=== PATIENT | female | born 1940 | race Two or more races ===

== ENCOUNTER 2016-11-10 07:13 | Day surgery (SDC) | payer MEDICARE, OTHER ==
--- NOTE | 2016-11-06 16:02 | Pre-Procedure Note/Attestation ---
Pre-Procedure Note/Attestation Complete Prior to Procedure Planned Procedure: bilateral Procedure Narrative: 1- Ptosis correction, upper lids 2- Entropion correction upper lids 3- Blepharoplasty, upper lids 4- conjunctivoplasty ,both eyes. 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 Attestation I attest that I discussed the nature of the procedure; its benefits; risks and complications; and alternatives (and the risks and benefits of such alternatives ), prior to the procedure, with the patient (or the patient's legal route sales representative). I attest that, if there was a reasonable possibility of needing a blood transfusion, the patient (or the patient's legal route sales representative) was given the [facility] standardized written summary, pursuant to the Jameel Burgo[place] Blood Safety Act ([place] [facility] and Safety Code # 1645, as amended). I attest that I re-evaluated the patient just prior to the surgery and that there has been no change in the patient's H&P, except as documented below: TEE POWELL Nov 06, 2016 16:02
[~2016-11-10] VITALS: Ht 162.6 cm; Wt 49.9 kg
[2016-11-10] VITALS (9 sets, daily range): BP systolic 125–147; BP diastolic 50–64
[~2016-11-10 07:13] MED LIST: Akten 3.5% 1ml Btl BOTH EYES ONE; Maxitrol Opth Oint 3.5gm BOTH EYES ONE
[2016-11-10] MEDS ORDERED: Akten 3.5% 1ml Btl ONE (07:54)
[2016-11-10] MEDS ORDERED: LR 1000ml 1,000 ML IV SCH (08:00)
[2016-11-10] MEDS ORDERED: ATORVASTATIN CA20 MG ORAL (08:26)
[2016-11-10] MEDS ORDERED: DEXILANT60 MG ORAL (08:26)
[2016-11-10] MEDS ORDERED: MELATONIN5 M6 PO (08:26)
[2016-11-10] MEDS ORDERED: ELIQUIS5 MG PO (08:26)
[2016-11-10] MEDS ORDERED: METOPROLOL TART25 MG ORAL (08:26)
[2016-11-10] MEDS ORDERED: ASPIR 8181 MG ORAL (08:26)
[2016-11-10] MEDS ORDERED: [UNRECOGNIZED DRUG - OTHER] PO (08:27)
[2016-11-10] MEDS ORDERED: VITAMIN D400 INTLU ORAL (08:27)
[2016-11-10] MEDS ORDERED: CALCIUM CITRAT250 M1 PO (08:27)
[2016-11-10] MEDS ORDERED: Sodium Hyaluronate 10 mg/ml 0.85ml ONE (08:29)
[2016-11-10] MEDS ORDERED: Tobradex Opth Oint 3.5gm ONE (09:24)
[2016-11-10] MEDS ORDERED: Tetracaine 0.5% Opth Soln ONE (09:25)
[2016-11-10] MEDS ORDERED: Lidocaine 2% MPF 5ml Vial INJ ONE (09:26)
[2016-11-10] MEDS ORDERED: Povidone-Iodine 5% opth solution ONE (09:26)
[2016-11-10] MEDS ORDERED: Midazolam 2mg/2ml Inj ONE (09:30)
[2016-11-10] MEDS ORDERED: LR 1000ml ONE (09:30)
[2016-11-10] MEDS ORDERED: NS Irrig 1000ml ONE (09:30)
[2016-11-10] MEDS ORDERED: fentaNYL 100 mcg/2 mL IV ONE (09:30)
[2016-11-10] MEDS ORDERED: Sterile Water Irrig 1000ml IRRIG ONE (09:30)
[2016-11-10] MEDS ORDERED: Propofol 10mg/ml 20ml IV ONE (09:30)
[2016-11-10] MEDS ORDERED: Bupivacaine 0.75% 30ml vial INJ ONE (09:40)
[2016-11-10] MEDS ORDERED: LR 1000ml 1,000 ML IVLG SCH (10:10)
--- NOTE | 2016-11-10 10:10 | Anethesia Preoperative Eval ---
Anesthesia Pre-op PMH/ROS General Date of Evaluation: Nov 10, 2016 Time of Evaluation: 09:24 Anesthesiologist: Zoey ASA Score: ASA 3 Mallampati Score Class I : Soft palate, uvula, fauces, pillars visible Class II: Soft palate, uvula, fauces visible Class III: Soft palate, base of uvula visible Class IV: Only hard plate visible Mallampati Classification: Class II Surgeon: Latasha Diagnosis: Bilateral ptosis Surgical Procedure: Bilateral blepharoplasty Anesthesia History: none Family History: no anesthesia problems Allergies: Coded Allergies: No Known Allergies (Verified Allergy, Mild, 11/04/10) Medications: see eMAR Past Medical History Cardiovascular: Reports: CAD - stable no recent CP, HTN, arrhythmia - SVT s/p ablasion, Denies: IN, other, valve dz Pulmonary: Denies: COPD, TODD, asthma, other Gastrointestinal/Genitourinary: Reports: GERD - mild, Denies: CRI, ESRD, other Neurologic/Psychiatric: Denies: CVA, TIA, dementia, depression/anxiety, other Endocrine: Denies: DM, hypothyroidism, other, steroids HEENT: Reports: cataract (L), cataract (R) - s/p Sx, Denies: FOND DU LAC (L), FOND DU LAC (R), glaucoma, other Hematology/Immune: Reports: bleeding disorder - anticoagulated, Denies: DVT, anemia, other Musculoskeletal/Integumentary: Reports: DJD, Denies: DDD, OA, RA, edema, other Other: other - malnourished PMH Narrative: as above PSxH Narrative: bilateral cataracts, Coronary angiogram with stent placement, ablation Anesthesia Pre-op Phys. Exam Physician Exam Last Vital Signs Date Time Temp Pulse Resp B/P Pulse Ox O2 Delivery O2 Flow Rate FiO2 11/10/16 08:17 98.3 62 20 141/63 96 Room Air Constitutional: NAD Neurologic: CN 2-12 intact Cardiovascular: RRR, no M/R/G Respiratory: CTA Gastrointestinal: S/NT/ND Airway Exam Mallampati Score: Class II MO: limited Neck: stiff ROM: limited Teeth: missing Dentures: no lower, no upper Anesthesia Pre-op A/P Labs see chart Studies Pre-op Studies: EKG - SR Risk Assessment & Plan Assessment: ASA 3 Plan: MAC Status Change Before Surgery: No Pre-Antibiotics Drug: none DMITRY OLMOS M.D. Nov 10, 2016 10:10
[2016-11-10] MEDS ORDERED: DiphenhydrAMINE 50mg/ml Inj IVP PRN (10:15)
[2016-11-10] MEDS ORDERED: fentaNYL 100 mcg/2 mL IV PRN (10:15)
--- NOTE | 2016-11-10 11:49 | Immediate Post-Op Evaluation ---
Immediate Post-Op Evalulation Immediate Post-Op Evalulation Procedure: Bilateral blepharoplasty Date of Evaluation: Nov 10, 2016 Time of Evaluation: 11:48 IV Fluids: 600 Blood Products: none Estimated Blood Loss: min Urinary Output: none Blood Pressure Systolic: 138 Blood Pressure Diastolic: 52 Pulse Rate: 74 Respiratory Rate: 20 O2 Sat by Pulse Oximetry: 98 Temperature (Fahrenheit): 97.8 Pain Score (1-10): 2 Nausea: No Vomiting: No Complications none Patient Status: awake, patent, none Hydration Status: adequate DMITRY OLMOS M.D. Nov 10, 2016 11:49
--- NOTE | 2016-11-10 11:56 | Brief Operative Note ---
Immediate Post Operative Note Operative Note Chief Complaint: Droopy eyelids, foreign body sensation, difficulty driving and reading. 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 Procedure: 1- Pterygium excision, bilaterally. 2- symblepharon excision, bilaterally. 3- Amniotic membrane graft bilaterally 4-conjunctivoplasty with amniotic graft, bilaterally. 5- Ptosis correction, upper lids ( bilaterally ). 6 Entropion correction, upper lids ( bilaterally). 7- upper blepharoplasty, bilaterally. Post-op Diagnosis: same as pre-op plus Surgeon: Tee Pagan MD. Stunner Animal: None Additional Surgeons: None Anesthesiologist: Dr. Greer Anesthesia: regional, local, MAC Specimen: none Complications: none Condition: stable Estimated Blood Loss: minimal Implant(s) used?: Yes - Omniotic membrane graft was done for pterygium and also for the conjunctivoplasty, bilaterally TEE PAGAN Nov 10, 2016 11:56
--- NOTE | 2016-11-10 12:07 | Discharge Summary ---
Discharge Summary Discharge Summary Discharge Summary DATE OF ADMISSION:11/10/2016 DATE OF DISCHARGE:11/10/2016 REASON FOR HOSPITALIZATION:1- Pterygium, bilaterally 2- Symblepharon 3- Conjunctivochalasis 4-Ptosis upper lids 5- Entropion upper lids 6- Dermatochalasis and blepharochalasis upper lids. SURGERY PERFORMED:1- Pterygium excision with amniotic membrane graft. 2- Symblepharon excision with amniotic membrane graft. 3- conjunctivoplasty with amniotic membrane graft. 4- Ptosis correction, upper lids 5- Entropion correction, upper lids 6- Blepharoplasty upper lids CONDITION IN THE HOSPITAL:The patient tolerated the surgery without complications. DISCHARGE CONDITION: The patient was stable at discharge. DISCHARGE MEDICATIONS: 1. Tobradex eye drop 4qid ou 2. Maxitrol eye ointment apply to skin and to the wound, bid ou. 3. Keflex capsule 500 mg one PO v3ivefi 4. Vicodine 5/325 mg one PO q6h PRN per pain. POSTOPERATIVE ORDERS: The patient has to rest at home. No bending, No lifting, No watching Television tonight. POSTOPERATIVE FOLLOW UP: The patient will be followed in my office tomorrow morning at 7 o'clock. TEE POWELL Nov 10, 2016 12:07
--- NOTE | 2016-11-10 12:46 | 48 Hour Post Anesthesia Eval ---
Post Anesthesia Evaluation Procedure: Bilateral blepharoplasty Date of Evaluation: Nov 10, 2016 Time of Evaluation: 12:45 Blood Pressure Systolic: 124 0: 58 Pulse Rate: 72 Respiratory Rate: 20 Temperature (Fahrenheit): 97.3 O2 Sat by Pulse Oximetry: 99 Airway: patent Nausea: No Vomiting: No Pain Intensity: 2 Hydration Status: adequate Cardiopulmonary Status: stable Mental Status/LOC: patient returned to baseline Follow-up Care/Observations: n/a Post-Anesthesia Complications: none Follow-up care needed: ready to discharge DMITRY OLMOS M.D. Nov 10, 2016 12:46
--- NOTE | 2016-11-11 15:30 | Operative Note - Dictated ---
DATE OF OPERATION: 11/11/2016 FACILITY: [facility]. SURGEON: Michael Pagan M.D. DOLPHIN TRAINER: None. ANESTHESIOLOGIST: Eugenio Greer M.D. Anesthesia: Monitored anesthesia care (MAC) plus local anesthesia with lidocaine 2% with epinephrine 1:100,000 plus Marcaine 0.75% 60/50. PREOPERATIVE DIAGNOSES: 1. Ptosis, upper lids. 2. Entropion, upper lids. 3. Blepharochalasis and dermatochalasis, upper lids. 4. Conjunctival 01:19 . 5. Pterygium. 6. . POSTOPERATIVE DIAGNOSES: 1. Ptosis, upper lids. 2. Entropion, upper lids. 3. Blepharochalasis and dermatochalasis, upper lids. 4. Conjunctival . 5. Pterygium. 6. . SURGERY PERFORMED: 1. Pterygium excision bilaterally. 2. excision bilaterally. 3. Conjunctivoplasty bilaterally. 4. Ptosis correction, bilaterally. 5. Entropion correction, upper lid. 6. Blepharoplasty, upper lid. 7. Amniotic membrane graft pterygium in the left ____ and conjunctival ____. Indication For Surgery: The patient is a 76-year-old lady with history of high blood pressure, arthritis, hypercholesterolemia, and osteopenia. She is complaining of blurry vision and droopy eyelids in both eyes. There is redness and difficulty moving eyes around. She is suffering from recurrent pterygium with blepharoplasty and upper lid ptosis, upper lid entropion, dermatochalasis, and blepharochalasis. This pathology is a progressive skin disease with resulting changes of corneal curvature and astigmatism and 04:08 with covering of visual axis, which really is a kind of interruption for driving. The pterygium, entropion, ptosis, dermatochalasis, , and blepharochalasis, all are demonstrated in the photos and severity of the patient's pathology demonstrated in enclosed photos and the patient's visual maynard. The only solution for this patient is correction of all those disfigurement and anatomic changes with surgery. INFORMED CONSENT: Following that, the nature of the surgery, risks, benefits, alternatives, and potential complications were explained in detail to the patient in her language Farsi. She voiced understanding. The potential complications including, but not limited to bleeding, infection, corneal exposure, over correction, under correction, ecchymosis, swelling of the face, hematoma, dry eye syndrome, loss of eyelashes, loss of eyebrows, inequality of both eyes, change in vision, even loss of vision and loss of the eye and also recurrent pterygium and all explained in detail to the patient, who voiced understanding and accepted all the complications. Then she signed the consent form, which is in the chart. Description of Surgery And Findings: Following that, the patient was taken to the operation room in a stable condition. Lidocaine gel, Akten 3.5% were applied to the conjunctivae of both eyes. Following that, the upper lid was marked with a marking pen 06:24 mm above the root of the eyelashes and 16 mm below the lower part of the eyebrows. About 20 mm of the skin was left to facilitate eye closure. IV sedation was given by the anesthesiologist, Dr. Greer. After adequate sedation and anesthesia had been achieved, the upper eyelid, lower eyelid, and conjunctival anterior were all injected with lidocaine 2% mixed with Marcaine. Following that, a speculum in the right eye, the pterygium was excised from the cornea and the body of the pterygium was removed from the sclerae 07:17. Following that, the extra conjunctiva was removed. The 360 degrees was performed and extra conjunctiva was excised and hemostasis was performed. There was created. Following that, amniotic membrane with PCO biologic glue sclera behind the junction. Following that, remainder of the conjunctiva was attached to the amniotic membrane with 08:06 glue. Same procedure was performed in the left eye too. Following that, was removed from the eye and IOH was applied to the surgical area in both eyes. Following that, using a Bovie knife, the skin and subdermal tissue were dissected from the orbicularis oculi muscle and excised. Following that, a narrow cut was made in the orbicularis oculi muscle and two compartments fat was released. The fat compartments were retracted conservatively and entered to the area of the superior sulcus. Following that, the lateral part of the superioris muscle was dissected to the aponeurosis of the muscle and aponeurosis of the muscle was tacked at about 2 mm bilaterally and stitched with 6-0 Vicryl in two layer suture. Following that, a wedge groove was made 3 mm above the root of the upper eyelid lashes. Following that, the tarsal plate inside the groove was removed with a Vannas scissors. Following that, the lids of the groove were stitched with 6-0 Vicryl and both sutures are trimmed. This way, the eyelid borders were rotated upwards and lashes were turned from downwards to upwards. Following that, the skin was stitched with 11:03 bilaterally and then the suture was trimmed. At the end of the surgery, the wound was checked for bleeding, there was no bleed and TobraDex ointment was applied to the wounds. Following that, the patient was transferred to the recovery room. In the recovery room, cold compresses were applied to the area. The wound was checked for bleeding. There was no bleeding. Postoperative orders and directions were given to the patient. The patient will be discharged home upon stabilization. 11:45. The patient will be followed in my office tomorrow morning. Michael Pagan M.D. DR: JULIA JOB#: [id number] CC:
--- NOTE | 2016-11-13 06:54 | Operative Note - PDOC ---
Operative Note Operative Note Operative Report DATE OF OPERATION:11/10/2016 SURGEON: TEE POWELL SALICYLIC ACID BLENDER: NONE ANESTHESIOLOGIST: Eugenio Greer MD ANESTHESIA: Local and monitored anesthetic care (MAC) + Lidocaine 2% with epinephrine 1/100,000 mixture with marcaine 0.75% 50/50 PREOPERATIVE DIAGNOSIS: 1. Ptosis upper lid both eyes. 2. Entropion upper lid, both eyes. 3. Blepharochalasis upper lid, both eyes. 4. Dermatochalasis upper lid, both eyes. 5. Pterygium, both eyes. 6. Symblepharon, both e:yes. 7- Conjunctivochalasis, both eyes. POSTOPERATIVE DIAGNOSES: 1. Ptosis upper lid, both eyes. 2. Entropion, upper lid, both eyes. 3. Blepharochalasis, upper lid, both eyes. 4. Dermatochalasis, upper lid, both eyes. 5. Pterygium, both eyes. 6. Symblepharone, both eyes. 7- Conjunctivochalasis, both eyes. PROCEDURES PERFORMED: 1. Ptosis repair, upper lid, both eyes. 2.Entropion repair, upper lid, both eyes. 3. Blepharoplasty, upper lid, both eyes. 4. Pterygium excision with graft, both eyes. 5. Symblepharon excision with graft, both eyes. 6 Conjunctivoplasty with graft, both eyes. 7 Amniotic membrane graft, both eyes. INDICATIONS FOR THE PROCEDURE: The patient is a 75 year-old Lady with a history of hypertension and hypercholesterolemia and arthritis.. She has had cataract surgery in both eyes seven years ago with excellent result. Now she is complaining of upper lid hooding., eyelid drooping, tearing foreign body sensation blurry vision, and difficulty driving, difficulty reading. On examination, the patient has ptosis, about 2 mm, in each eye. The patient has dermatochalasis. .She has entropion and blepharochalasis as well. 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 She is suffering from sever dermatochalasis and blepharochalasis with ptosis and entropion. These are progressive skin loosening disease with resulting change of corneal curvature which induce astigmatism and covering of the visual axis. All those abnormal anatomy changes will result difficulty driving and reading. The severity of all those pathology is clearly demonstrated on enclosed patients photos and visual maynard. The only solution for this patients problems is correction of all those disfigurements and anatomy changes with surgery. INFORMED CONSENT: The procedure, the nature of the procedure, benefits, risks, alternatives and potential complications were explained to the patient in detail in her language Farsi. she voiced understanding and accepted all the complications. Potential complications are including but not limited to, bleeding, infection, under-correction, over-correction, ecchymosis, swelling of the face, hematoma, dry eye syndrome, loss of eyelashes, loss of eyebrows, inequality of both eyes, recurrence of pterygium and symblepharon or more symblepharon, change in vision , even loss of vision and loss of the eye, were explained in detail to the patient, who voiced understanding and accepted all the complications. Then she signed the consent form, which is in the chart. DESCRIPTION OF THE SURGERY AND FINDINGS: After explaining the complications, the patient signed the consent form, which is in the chart. Following that, the patient was taken to the operating room in a stable condition. IV sedation was given by the anesthesiologist Dr. Greer. After adequate anesthesia and sedation had been achieved, both eyes and upper face and lower face were prepped and draped in a sterile fashion for intraocular surgery. Following that, both upper lids were anesthetized with lidocaine 2% with epinephrine mixed with marcaine 0.75%. The forehead was anesthetized with lidocaine 2% and epinephrine with injection of the lidocaine to the supraorbital nerve and forehead. After adequate anesthesia and sedation had been achieved, both upper lids were marked with a marking pen. The juliet was placed 10mm above the ciliary line of the skin, and 10mm below the lower part of the eyebrow then 20mm of skin was left to facilitate eye closure. Following that eye spiculum placed and conjunctiva 360 degree injected with anesthetics. following that the pterygium was excised from the cornea and the sclera. symblepharon from the eyelid and excised. following that 360 degree loose conjunctiva were excised, hemostasis performed. Then amniotic membrane, was glued to the sclera. following that the extra glue and tissues were excised and trimmed. Following that the skin was removed, and the skin was from the orbicularis oculi using the Bovie, and hemostasis was performed. Following that , the orbicularis oculi muscle was dissected to the levator palpebrae superioris. Following that, all the two fat compartment was sculptured conservatively. Following that, the levator palpebrae superioris were tacked on each side about 4mm. With 5-0 Vicryl, three stitches were placed in each side. Following that, a groove was created in the tarsus of the eyelid on both sides. Following that, the groove was stitched with 7-0 Vicrl, and the direction of the lashes was changed from downward to upward. Following that, the upper part of the wound was dissected to the periosteum of the frontal bone.Following that, using 4-0 nylon, a stitch was placed on the eyebrow, and the eyebrow was stitched to the periosteum of the frontal bone. Hemostasis was performed, and at the end of the procedure the upper eyelid skin was stitched with 7-0 plain gut in interrupted stitches first. Following that, with 7-0 plain gut, continuous running stitches were placed between the interrupted stitches. The patient tolerated the procedure, and the bleeding was just about 3 ML in both sides. . Following that, the skin was stitched with 6-0 plain gut in both sides. The patient tolerated the surgery without complications, Pterygium, symblepharon , conjunctivochalasis and also ptosis and entropion of the upper lids and the droopy eyebrows and eyelids was corrected. Following that, the patient was taken to the recovery room in stable condition. Postoperative orders and directions were given to the patient. Ice compress was placed on the wounds. The patient will be discharged home after stabilization. The patient will be followed in my office tomorrow morning. TEE POWELL Nov 13, 2016 06:54
== END 2016-11-10 13:50 | disposition home or self-care (01) ==
LOC: SUR 07:13
DX: H02.403 Unspecified ptosis of bilateral eyelids (principal); H02.034 Senile entropion of left upper eyelid; H02.031 Senile entropion of right upper eyelid; H02.34 Blepharochalasis left upper eyelid; H02.31 Blepharochalasis right upper eyelid; H02.834 Dermatochalasis of left upper eyelid; H02.831 Dermatochalasis of right upper eyelid; H11.823 Conjunctivochalasis, bilateral; H11.003 Unspecified pterygium of eye, bilateral; H11.23 Symblepharon; I10 Essential (primary) hypertension; I25.10 Atherosclerotic heart disease of native coronary artery without angina pectoris; I49.9 Cardiac arrhythmia, unspecified; K21.9 Gastro-esophageal reflux disease without esophagitis; M19.90 Unspecified osteoarthritis, unspecified site; E78.00 Pure hypercholesterolemia, unspecified; M85.80 Other specified disorders of bone density and structure, unspecified site; Z79.01 Long term (current) use of anticoagulants
CPT/HCPCS: 15823; 65426; 67924; 68335; J2250; J2704; J3010; J3490; J7120; 94003; 94150